=== PATIENT | male | born 1970 | race Caucasian/White ===

== ENCOUNTER 2025-01-21 08:33 | Emergency (ER) | payer OTHER ==
[~2025-01-21] VITALS: Ht 180.3 cm; Wt 86.6 kg
[2025-01-21] MEDS ORDERED: Tdap Vaccine 0.5 ML SYRINGE IM ONE (09:15)
[2025-01-21] MEDS ORDERED: Acetaminophen 500 MG TAB PO ONE (10:45)
[2025-01-21 10:50] VITALS: BP 146/113
== END 2025-01-21 10:48 | disposition home or self-care (01) ==
LOC: ED 08:33
DX: S06.9X9A Unspecified intracranial injury with loss of consciousness of unspecified duration, initial encounter (principal); S01.01XA Laceration without foreign body of scalp, initial encounter; I10 Essential (primary) hypertension; W22.8XXA Striking against or struck by other objects, initial encounter; Y92.89 Other specified places as the place of occurrence of the external cause; Y99.0 Civilian activity done for income or pay
CPT/HCPCS: 90715